=== PATIENT | male | born 1975 | race Caucasian/White ===

== ENCOUNTER → 2018-04-11 12:03 | Outpatient (CLI) | payer OTHER, SELFPAY ==
--- NOTE | 2018-04-11 | DI.RAD.S_ITS ---
PROCEDURE: XR SHOULDER LT MIN 2V INDICATIONS: LEFT SHOULDER PAIN TECHNIQUE: 3 views of the shoulder were acquired. COMPARISON: None. FINDINGS: Bones: No acute fractures or dislocations, but there has been a prior repair of what appears to be an anterior glenoid fracture, with both screws and efe in place. Moderate degenerative osteoarthritis is likely posttraumatic in this clinical circumstance at the glenohumeral joint.. No suspicious bony lesions. Visualized ribs appear intact. Soft tissues: No suspicious soft tissue calcifications. 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 No definite acute disease. Dictated by: Jameson Peng M.D. on 04/11/2018 at 13:50 Approved by: Jameson Peng M.D. on 04/11/2018 at 13:51
== END ==
PROVIDERS: Visit Provider Family Medicine
DX: M25.512 Pain in left shoulder (principal); M19.112 Post-traumatic osteoarthritis, left shoulder; T14.90XS Injury, unspecified, sequela
CPT/HCPCS: 73030

== ENCOUNTER → 2021-01-12 10:36 | Outpatient (CLI) | payer OTHER, SELFPAY ==
--- NOTE | 2021-01-12 | DI.RAD.S_ITS ---
PROCEDURE: XR LUMBAR SPINE 2-3V INDICATIONS: low back pain TECHNIQUE: 3 views of the lumbar spine were acquired. COMPARISON: None. FINDINGS: Bones: No acute fracture. Multilevel degenerative endplate sclerosis and spurring. Diffuse facet arthropathy. Straightening of the normal lordotic curvature. No definite lumbar disc space narrowing. Soft tissues: Overlying bowel gas pattern is normal. No suspicious soft tissue calcifications. IMPRESSION: Straightening of the normal lordotic curvature. Scattered endplate degenerative changes and mild facet disease. Dictated by: Keyur Bowie M.D. on 01/12/2021 at 13:27 Approved by: Keyur Bowie M.D. on 01/12/2021 at 13:28
== END ==
PROVIDERS: PCP Internal Medicine; Referring Provider Internal Medicine; Visit Provider Internal Medicine
DX: M54.50 Low back pain, unspecified (principal); M47.816 Spondylosis without myelopathy or radiculopathy, lumbar region
CPT/HCPCS: 72100

== ENCOUNTER 2021-03-06 04:10 | Emergency (ER) | payer OTHER, SELFPAY ==
[2021-03-06 04:16] VITALS: BP 141/68; PULSE 50; RESP 18; TEMP 36.6; O2SAT 99; BMI 24.3
--- NOTE | 2021-03-06 04:23 | DI.US.S_ITS ---
PROCEDURE: US SCROTUM INDICATIONS: PAIN TECHNIQUE: Real-time scanning was performed of the scrotum and testicles, with image documentation. Color and pulse Doppler interrogation was performed of both testicles. COMPARISON: [facility], CT, CT ABDOMEN PELVIS W CON, 03/06/2021, 4:58. FINDINGS: Right: Testicle is normal in size at 4.7 x 2 x 3.1 cm, and homogenous in echotexture. Epididymis is normal in overall size and morphology. There is a trace right-sided hydrocele. Overlying scrotal skin is normal in thickness. Left: Testicle is normal in size at 5.2 x 2.3 x 3.1 cm, and homogeneous in echotexture. Epididymis is normal in overall size and morphology. There is a trace left-sided hydrocele. Overlying scrotal skin is normal in thickness. Doppler: Color and pulse Doppler demonstrate normal and symmetric arterial flow in both testicles. No varicocele is seen. IMPRESSION: Study within normal limits, with trace hydroceles seen. Note: No significant discrepancy from the preliminary report. Dictated by: Natalio Luke M.D. on 03/06/2021 at 6:58 Approved by: Natalio Luke M.D. on 03/06/2021 at 7:00
--- NOTE | 2021-03-06 04:23 | DI.CT.S_ITS ---
PROCEDURE: CT ABDOMEN PELVIS W CON INDICATIONS: abd/back/testicular pain, hx testicular torsion? TECHNIQUE: After the administration of IV contrast, axial sections were acquired from the lung bases to the pubic symphysis. Coronal and sagittal reformats were performed. For radiation dose reduction, the following was used: automated exposure control, adjustment of mA and/or kV according to patient size. COMPARISON: [facility], US, US SCROTUM, 03/06/2021, 4:53. FINDINGS: Image quality: Excellent. Lung bases: Unremarkable. A small hiatal hernia is incidentally noted. Heart: No significant findings. ABDOMEN: Liver: Liver demonstrates normal size. Numerous rounded low-density lesions are seen, which are attributed to simple cysts. Gallbladder: Unremarkable. Biliary ducts: Unremarkable. Pancreas: Unremarkable. Spleen: The spleen demonstrates normal size. Along the anterior aspect of the spleen, there is a low-density lesion that measures 1 cm. Adrenal Glands: Unremarkable. Kidneys and Ureters: There is an obstructing stone seen at the left ureteropelvic junction, as on series 4, image 34 and on series 2, image 40 that measures up to 5 mm. There is associated left-sided hydronephrosis. Minimal perinephric fat stranding is seen. The left kidney demonstrates delayed enhancement compared to the right. The kidneys demonstrate normal size. No right-sided hydronephrosis is seen. Stomach and Bowel: Stomach, small bowel loops, and colon are unremarkable. A normal appendix is incidentally noted. There is minimal sigmoid diverticulosis, without findings of active diverticulitis. Peritoneum: No abnormal intraperitoneal fluid. No free air. Ventral Wall: A mild periumbilical hernia is seen, containing fat. Abdominal Nodes: No retroperitoneal or mesenteric adenopathy by size criteria. Vessels: Aorta and inferior vena cava are normal in size. PELVIS: Pelvic Organs: Unremarkable. Bladder: Unremarkable. Pelvic Nodes: No enlarged lymph nodes. Miscellaneous: No inguinal hernias are seen. Bones: Unremarkable. IMPRESSION: 5 mm obstructing left-sided kidney stone. Incidental note is made of: Small hiatal hernia Simple appearing liver cysts Fat containing periumbilical hernia Normal appendix Diverticulosis, without active diverticulitis Note: No significant discrepancy from the preliminary report. Dictated by: Natalio Luke M.D. on 03/06/2021 at 7:00 Approved by: Natalio Luke M.D. on 03/06/2021 at 7:05
--- NOTE | 2021-03-06 04:24 | ED_ITS ---
HPI - Male Genitourinary General Chief complaint: Abdominal Pain Stated complaint: severe abdominal/pelvic pain Time Seen by Provider: 03/06/21 04:16 Source: patient Mode of arrival: Ambulatory Limitations: no limitations History of Present Illness HPI Narrative: This is a 46-year-old male who comes in with acute onset of lower abdominal, back and testicular pain while sleeping. Patient states that he has pain he can not really describe if it is in the left or right testicle. He is not tender with palpation but does describe testicular pain radiate up to his back and abdomen. Patient denies fevers or chills. He has had nausea and had some active vomiting in the department. He states he has had normal bowel movements with no diarrhea constipation. He states he has been urinating normally with no discharge or difficulty with urination. Patient states he had a two similar episodes in 2016 or 2017. Patient states he was seen by Dr. Davalos in [place], [place]. He was told they need to take him to the OR but when by seen by the urologist other partner they did not think he required surgical treatment. 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 Patient states he has had sick shoulder surgeries most recently a months ago to clean out his shoulder. He denies other medical issues currently besides taking meloxicam for chronic back pain. He denies any drug allergies. He states he does smoke, occasional alcohol, marijuana but no o ther illicit. Dr. Silverio is his primary care. Related Data Previous Rx's Medication Instructions Recorded ketorolac 10 mg tablet 10 mg PO Q6H PRN #14 tab 03/06/21 ondansetron 4 mg disintegrating 4 mg PO Q6H PRN #10 tab 03/06/21 tablet tamsulosin 0.4 mg capsule (Flomax) 0.4 mg PO DAILY #7 cap 03/06/21 Allergies Allergy/AdvReac Type Severity Reaction Status Date / Time No Known Drug Allergies Allergy Verified 03/06/21 04:18 Review of Systems Review of Systems ROS Unobtainable: All systems reviewed & are unremarkable except as noted in HPI and below Patient History Social History Smoking Status: Never smoker Smoking Status: Never smoker Substance Use Type: marijuana Exam Narrative Exam Narrative: GENERAL: Alert and oriented x three, male in moderate distress. HEENT: Head normocephalic, atraumatic, EOMI, pupils reactive, face symmetric, moist mucous membranes NECK: Supple, full range of motion CARDIOVASCULAR: Regular rate and rhythm without murmurs, rubs or gallops. RESPIRATORY: Breath sounds equal bilaterally, no wheezes rales or rhonchi. ABDOMEN: Soft, generalized abdominal. Hyperactive bowel sounds all 4 quadrants. No guarding or rebound, rigidity, no mass, nondistended. : Bilateral CVA tenderness. Male: normal external examination, no swelling, warmth erythema appreciated, penile discharge or lesions, testicles non-tender to palpation, cremasteric reflex intact bilaterally, no horizontal lie noted, no inguinal hernias noted. EXTREMITIES: Normal range of motion, no clubbing or edema. Neurovascularly intact NEUROLOGICAL: Cranial nerves II through XII grossly intact. Moving all extremit ies SKIN: Warm, dry, no petechiae, no rashes or lesions. Initial Vital Signs Initial Vital Signs: Vital Signs Temperature 98 F 03/06/21 04:16 Pulse Rate 50 L 03/06/21 04:16 Respiratory Rate 18 03/06/21 04:16 Blood Pressure 141/68 H 03/06/21 04:16 Pulse Oximetry 99 03/06/21 04:16 Course Orders Ordered: ED Orders 03/06/21 04:18 CMP [Comprehensive Metabolic Panel] Stat Complete Blood Count AUTO DIFF Stat Lipase Stat 03/06/21 04:23 CT abdomen pelvis w con Stat US scrotum Stat 03/06/21 06:00 Urinalysis and Microscopic Stat Discontinued Medications Sodium Chloride (Normal Saline 0.9%) 1,000 mls @ 1,000 mls/hr IV BOLUS ONE Stop: 03/06/21 05:21 Last Infusion: 03/06/21 06:12 Dose: 0 mls/hr Documented by: Admin: 03/06/21 04:27 Dose: 1,000 mls/hr Documented by: JOSE G Ketorolac Tromethamine (Ketorolac 30 Mg/Ml Vial) 15 mg IV NOW ONE Stop: 03/06/21 04:23 Last Admin: 03/06/21 04:28 Dose: 15 mg Documented by: JOSE G Ketorolac Tromethamine (Ketorolac 10 Mg Tablet) 10 mg PO NOW ONE Stop: 03/06/21 06:52 Last Admin: 03/06/21 06:55 Dose: 10 mg Documented by: Ondansetron HCl (Ondansetron 4 Mg/2 Ml Inj) 4 mg IV NOW ONE Stop: 03/06/21 04:23 Last Admin: 03/06/21 04:28 Dose: 4 mg Documented by: JOSE G Tamsulosin HCl (Tamsulosin 0.4 Mg Capsule) 0.4 mg PO NOW ONE Stop: 03/06/21 06:33 Last Admin: 03/06/21 06:45 Dose: 0.4 mg Documented by: Reevaluation(s) Reevaluation #1: Patient feeling significantly better shortly after Toradol. Urine does show hematuria. Reevaluation #2: Patient continues to be more comfortable. He has some pain but is manageable. We reviewed patient's imaging including that he has a kidney stone high above left. Patient was given Flomax. Pain has been controlled with Toradol. He has hydrocodone at home but states it makes him feel hung over and somewhat nauseous was given a prescription for Zofran. He has been taking meloxicam but is unsure of the dose asked stop his meloxicam for short period to take Toradol in stead orally. Patient has never seen a urologist. He does have follow-up with primary care but was given referral to Urology as well along with return precautions. Vital Signs Vital signs: Vital Signs - 8 hr 03/06/21 04:16 03/06/21 07:00 Temperature 98 F Pulse Rate 50 L 66 Respiratory Rate 18 16 Blood Pressure 141/68 H 127/58 L Pulse Oximetry 99 99 MDM - Male Genitourinary Lab Data Result diagrams: 03/06/21 04:18 03/06/21 04:18 Labs: Lab Results 03/06/21 03/06/21 03/06/21 Range/Units 04:18 04:18 06:00 WBC 5.8 (4.5-11.0) X10^3/uL RBC 4.87 (4.5-5.9) X10^6/uL Hgb 15.1 (13.5-17.5) g/dL Hct 44.3 (41-53) % MCV 91.0 (80-100) fL MCH 30.9 (26-34) PG MCHC 34.0 (30-36) % RDW 12.4 (11.6-14.8) % Plt Count 193 (150-400) X10^3/uL Neut % (Auto) 41.4 L (50-75) % Lymph % (Auto) 45.3 H (25-40) % Spencer % (Auto) 9.2 (3-14) % Eos % (Auto) 3.0 (2-4) % Baso % (Auto) 1.1 (0-2) % Neut # (Auto) 2400 (5983-7379) /uL Lymph # (Auto) 2600 (8152-8050) /uL Spencer # (Auto) 500 (0-900) /uL Eos # (Auto) 200 (0-450) /uL Baso # (Auto) 100 (0-100) /uL Sodium 137 (137-145) mmol/L Potassium 3.9 (3.4-5.1) mmol/L Chloride 109 H (98-107) mmol/L Carbon Dioxide 26 (22-32) mmol/L BUN 14 (9-20) mg/dL Creatinine 0.85 (0.66-1.25) mg/dL Estimated GFR > 60.0 (>60) mL/min BUN/Creatinine Ratio 16.5 (6-22) Glucose 140 H (70-100) mg/dL Calcium 8.9 (8.4-10.2) mg/dL Total Bilirubin 0.8 (0.2-1.3) mg/dL AST 29 (17-59) IU/L ALT 24 (<50) IU/L Alkaline Phosphatase 38 (38-126) U/L Total Protein 6.7 (6.3-8.2) g/dL Albumin 4.2 (3.5-5.0) g/dL Globulin 2.5 (1.7-4.1) g/dL Albumin/Globulin Ratio 1.7 (1.0-2.8) Lipase 192 (23-300) U/L Urine Color Yellow Urine Appearance Clear Urine pH 7.0 (4.5-8.0) Ur Specific [place] 1.010 (1.000-1.035) Urine Protein Negative (Negative) Urine Glucose (UA) Negative (Negative) g/dL Urine Ketones Negative (NEGATIVE) Urine Occult Blood 3+ H (Negative) Urine Nitrate Negative (Negative) Urine Bilirubin Negative (NEGATIVE) Urine Urobilinogen 0.2 (0.2) E.U./dL Ur Leukocyte Esterase Negative (NEGATIVE) Urine RBC 30-100/hpf H (0-5/HPF) Urine WBC 0-1/hpf (0-5/HPF) Urine Bacteria None seen (None) Urine Mucus 1+ H (Negative) Ur Culture Indicated? Cult not indicated Urine Dip Bedside Urine Glucose Negative Bedside Urine Bilirubin - Negative Bedside Urine Ketone - Negative Urine Specific [place] 1.015 Bedside Urine Occult Blood +++ Bedside Urine pH 6.5 Bedside Urine Protein - Negative Bedside Urine Urobilinogen - Negative Bedside Urine Nitrite - Negative Bedside Urine Leukocytes - Negative Esterase Imaging Data scrotal US: Radiologist's Impression: small hydrocele. No other significant changes. Normal flow bilaterally. CT scan - abdomen/pelvis: Radiologist's Impression: Moderate left hydro secondary to ureteropelvic junction stone. It is 3 x 3.5 x 4 mm. Patient is noted to have sub cm well-circumscribed hypodense liver lesions throughout both lobes. Larger lesion is left lobe 2 cm diameter and appearance of cyst. MDM Narrative Medical decision making narrative: This is a 46-year-old male comes to the emergency department with complaint of sudden onset while sleeping of abdominal, pelvic and testicular pain although patient is not able to localize his pain to either testicle or even both is nontender on exam. He has what is described as a prior history of torsion but was told he did not require surgery. Patient's labs are overall reassuring he does have some hematuria on urinalysis and his ultrasound is negative for torsion and with a reassuring physical exam his CT abdomen pelvis obtained shows moderate left hydro with a stone at the ureteropelvic junction measuring 3 x 3.5 x 4 mm. Findings were shared with the patient he does not have any signs of infection or acute kidney injury at this time. Initially discussed continue patient's home meloxicam, Tylenol oxycodone but patient states he does not tolerate oxycodone well but does have hydrocodone at home. Discussed that he can optimize his medications by stopping meloxicam and having a short course of Toradol or ketorolac orally. Tylenol or hydrocodone/APAP and Flomax. All questions answered. Return precautions discussed. Discharge Plan Departure Patient Disposition: Home Clinical Impression: Kidney stone on left side Instructions: DI for Kidney Stones Activity Restrictions/Additional Instructions: Follow up with your physician or urology. Call for an appointment. You have a kidney stone on your left side in the ureter close to the kidney. Take flomax daily until gone. Stop your meloxicam. You may take Toradol or ketorolac 1 tablet every 6 hours as needed for pain. Do not take for more than 5 days in a row. You may take your next dose at 10:30am. You may take Tylenol up to a 1000 mg every 8 hours with this medication or your hydrocodone/APAP every 6 hours. Do not take more than 3000 mg of Tylenol in 24 hours. If you are nauseated you may take Zofran 1 tablet every 6 hours as needed. You can take this 20 minutes prior to narcotic pain medication if it makes you feel nauseated. [facility] [place]. Please return for fevers, rapidly worsening abdominal, back or flank pain, persistent vomiting, inability to urinate or other new or concerning symptoms. Prescriptions: New ondansetron 4 mg tablet,disintegrating 4 mg PO Q6H PRN (Reason: nausea and vomiting) Qty: 10 0RF ketorolac 10 mg tablet 10 mg PO Q6H PRN (Reason: pain) Qty: 14 0RF tamsulosin [Flomax] 0.4 mg capsule 0.4 mg PO DAILY Qty: 7 0RF Referrals: Zulma Guido MD [Physician] - Christie Silverio ARNP [Primary Care Provider] -
[2021-03-06] MEDS: SODIUM CHLORIDE 0.9% 1,000 ML 1000 ML IV (04:27)
[2021-03-06] MEDS: ONDANSETRON 4 MG/2 ML INJ IV (04:28)
[2021-03-06] MEDS: KETOROLAC 30 MG/ML VIAL 15 MG IV (04:28)
[2021-03-06 04:33] LABS: Add Manual Diff / Slide Review NO; Basophils Absolute Auto 100 /uL (0-100); Basophils Percent Auto 1.1 % (0-2); Eosinophils Absolute Auto 200 /uL (0-450); Hematocrit 44.3 % (41-53); Hemoglobin 15.1 g/dL (13.5-17.5); Lymphocytes Absolute Auto 2600 /uL (1100-4500); Lymphocytes Percent Auto 45.3 % (25-40); Mean Corpuscular Hemoglobin 30.9 PG (26-34); Monocytes Absolute Auto 500 /uL (0-900); Monocytes Percent Auto 9.2 % (3-14); Neutrophils Absolute Auto 2400 /uL (1500-7000); Neutrophils Percent Auto 41.4 % (50-75); Platelet Count 193 X10^3/uL (150-400); Red Blood Cell Count 4.87 X10^6/uL (4.5-5.9); Red Cell Distribution Width 12.4 % (11.6-14.8); White Blood Cell Count 5.8 X10^3/uL (4.5-11.0)
[2021-03-06 04:42] LABS: Alanine Aminotransferase 24 IU/L (<50); Albumin 4.2 g/dL (3.5-5.0); Albumin Globulin Ratio 1.7 (1.0-2.8); Alkaline Phosphatase 38 U/L (38-126); Aspartate Aminotransferase 29 IU/L (17-59); BUN Creatinine Ratio 16.5 (6-22); Bilirubin Total 0.8 mg/dL (0.2-1.3); Blood Urea Nitrogen 14 mg/dL (9-20); Calcium 8.9 mg/dL (8.4-10.2); Carbon Dioxide 26 mmol/L (22-32); Chloride 109 mmol/L (98-107); Estimated Glomerular Filt Rate > 60.0 mL/min (>60); Globulin 2.5 g/dL (1.7-4.1); Glucose 140 mg/dL (70-100); HEMOLYSIS 36 (0-50); Lipase 192 U/L (23-300); Potassium 3.9 mmol/L (3.4-5.1); Sodium 137 mmol/L (137-145); Total Protein 6.7 g/dL (6.3-8.2)
[2021-03-06 06:20] LABS: Appearance Urine UA CLEAR; Bilirubin Urine UA NEGATIVE (NEGATIVE); Color Urine UA YELLOW; Glucose Urine UA NEGATIVE (Negative); Ketones Urine UA NEGATIVE (NEGATIVE); Leukocyte Esterase Urine UA NEGATIVE (NEGATIVE); Nitrite Urine UA NEGATIVE (Negative); Occult Blood Urine UA 3+ (Negative); Protein Urine UA NEGATIVE (Negative); Urobilinogen Urine UA 0.2 E.U./dL (0.2)
[2021-03-06 06:30] LABS: RBC Urine 30-100/HPF (0-5/HPF); WBC Urine 0-1/HPF (0-5/HPF)
[2021-03-06 06:31] LABS: Bacteria Urine None Seen; Culture Indicated Urine Cult Not Indicated; Mucus Urine 1+ (Negative)
[2021-03-06] MEDS: TAMSULOSIN 0.4 MG CAPSULE PO (06:45)
[2021-03-06] MEDS: KETOROLAC 10 MG TABLET PO (06:55)
[2021-03-06 07:00] VITALS: BP 127/58; PULSE 66; RESP 16; O2SAT 99
== END 2021-03-06 07:01 | disposition home or self-care (01) ==
PROVIDERS: Emergency Provider Emergency Medicine; PCP Internal Medicine
DX: N13.2 Hydronephrosis with renal and ureteral calculous obstruction (principal); N50.819 Testicular pain, unspecified
CPT/HCPCS: 36415; 74177; 76870; 80053; 81001; 81003; 83690; 85025; 96361; 96374; 96375; 99284; J1885; J2405; Q9967

== ENCOUNTER → 2021-03-21 11:12 | Outpatient (CLI) | payer OTHER, SELFPAY ==
--- NOTE | 2021-03-21 | DI.RAD.S_ITS ---
PROCEDURE: XR KUB INDICATIONS: KIDNEY STONES TECHNIQUE: One view of the abdomen acquired. COMPARISON: [facility], CT, CT ABDOMEN PELVIS W CON, 03/06/2021, 4:58. FINDINGS: Surgical changes and devices: None. Bowel: Bowel gas pattern is normal. Soft tissues: There is a proximal left ureteral stone, unchanged in position. Visualized solid organ contours appear normal in size. Bones: No suspicious bony lesions. IMPRESSION: Persistent left proximal ureteral stone. Dictated by: Julio Davies M.D. on 03/21/2021 at 19:35 Approved by: Julio Davies M.D. on 03/21/2021 at 19:36
== END ==
PROVIDERS: PCP Family Medicine; Referring Provider Family Medicine; Visit Provider Family Medicine
DX: N20.1 Calculus of ureter (principal)
CPT/HCPCS: 74018

== ENCOUNTER → 2021-03-29 09:55 | Outpatient (CLI) | payer OTHER, SELFPAY ==
[2021-03-29 10:40] LABS: COVID19 -Nasal RAPID Negative (Negative)
== END ==
PROVIDERS: PCP Family Medicine; Referring Provider Specialist; Visit Provider Specialist
DX: Z20.822 Contact with and (suspected) exposure to COVID-19 (principal)
CPT/HCPCS: 87635; C9803

== ENCOUNTER 2021-04-01 07:36 | Day surgery (SDC) | payer OTHER, SELFPAY ==
[2021-03-29 07:46] VITALS: BMI 25.9
[2021-04-01] VITALS (8 sets, daily range): BP systolic 103–140; BP diastolic 67–79; PULSE 56–67; RESP 10–18; TEMP 36.1–36.7; O2SAT 95–100; BMI 25.9
--- NOTE | 2021-04-01 | DI.RAD.S_ITS ---
PROCEDURE: XR KUB INDICATIONS: Left UPJ calculus TECHNIQUE: One view of the abdomen acquired. COMPARISON: [facility], CR, XR KUB, 03/21/2021, 11:12. FINDINGS: Surgical changes and devices: None. Bowel: Bowel gas pattern is normal. Soft tissues: 4 x 2 mm calcification is seen projecting in the region of left UPJ not significantly changed in size and appearance from previous study. No new renal calcification is seen. Visualized solid organ contours appear normal in size. Bones: No suspicious bony lesions. IMPRESSION: Persistent calcification projecting in the region of left UPJ not significantly changed from prior study. Dictated by: Nii Navarro M.D. on 04/01/2021 at 8:11 Approved by: Nii Navarro M.D. on 04/01/2021 at 8:17
[2021-04-01] MEDS: LACTATED RINGERS 1,000 ML 42 ML IV (08:09)
--- NOTE | 2021-04-01 08:55 | PM.PREOP ---
Pre-operative Note COVID-19 Criteria for continued procedure: Expected advancement of disease process, Possibility delay results in more complex future surgery or treatment, Increased loss of function, Continuing or worsening of significant or severe pain, Deterioration of the patient's condition or overall health, Delay expected to result in less-positive ultimate med/surg outcome and Non-surgical alternatives not available or appropriate per current SOC Interval Note History & Physical reviewed/Exam performed by Physician: Yes Changes to H&P: No
[2021-04-01] MEDS: CEFAZOLIN 2 GM/20 ML SYRINGE IV (09:30)
--- NOTE | 2021-04-01 09:36 | SUR.OPER ---
Supine on ESWL table, head on pillow, arms padded with gel pads and at sides, rolled towel under wrists,, legs uncrossed, gel pad under bilateral heels.
--- NOTE | 2021-04-01 09:52 | P.OP_ITS ---
Operative Date/Time/Diagnoses Date of procedure: 04/01/21 Time of procedure: 09:53 Pre-op diagnosis: Obstructing 7 mm left ureteropelvic junction calculus Intractable left renal colic Procedure & Clinicians Procedure: 1. Left extracorporeal shockwave lithotripsy (maximal power level 7 x1 1000 shocks). Same procedure as scheduled: Yes Indications: 1. Obstructing 7 mm left ureteropelvic junction calculus. 2. Intractable left renal colic. Surgeon: Zulma Guido Click Yes if Unassisted: Yes Anesthesia Type: General Operative Notes Findings: Index calculus unchanged in size or position on today's imaging in comparison to recent studies. Closure Type: not applicable Specimen(s): none sent Estimated Blood Loss (mL): 0 Blood products transfused: none Procedure in detail: Patient was positioned supine was administered general anesthesia. The index calculus was localized X, Y and Z planes. Lithotripsy was then commenced at minimal power level for 200 shocks. A 2 minute pause was then conducted. Lithotripsy was then commenced and the power level was gradually increased to maximum 7.0. At 500 shocks there was excellent assistance stone fragmentation. Additional 500 shocks was then provided at this time no remaining visible stone material could be visualized. The treatment year then halted. The patient was then awakened, transferred to [facility], and transferred to recovery awake and stable condition. Complications: none Post-operative Condition: stable Disposition: PACU Plan for aftercare: Discharge home.
[2021-04-01] MEDS: FUROSEMIDE 40 MG/4 ML VIAL 20 MG IV (10:12)
[2021-04-01] MEDS: HYDROCODONE/ACET 5/325 TABLET 1 TAB PO (10:42)
--- NOTE | 2021-04-01 11:53 | SUR.PHASEII ---
1100-Pt A&O, VSS, up to bathroom and voiding without difficulty, urine strained and no stones noted. Pt denies nausea and drinking juice without problems, having a bit of pain 4/10 now getting better with prior medication given. iv dcd and site clear. 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
== END 2021-04-01 11:00 | disposition home or self-care (01) ==
PROVIDERS: PCP Family Medicine; Referring Provider Specialist; Visit Provider Specialist
PROC: (CPT 50590; principal; 2021-04-01 09:00)
DX: N20.1 Calculus of ureter (principal)
CPT/HCPCS: 50590; 74018; J0690; J1940; J2250; J2405; J2704; J3010

== ENCOUNTER → 2021-04-11 07:36 | Outpatient (CLI) | payer OTHER, SELFPAY ==
--- NOTE | 2021-04-11 07:58 | DI.RAD.S_ITS ---
PROCEDURE: XR KUB INDICATIONS: kidney stones TECHNIQUE: One view of the abdomen acquired. COMPARISON: [facility], CR, XR KUB, 04/01/2021, 7:51. FINDINGS: Surgical changes and devices: None. Bowel: Bowel gas pattern is nonobstructive. Prominent colonic stool is present. Soft tissues: No suspicious abdominal calcifications. Visualized solid organ contours appear normal in size. Bones: No suspicious bony lesions. IMPRESSION: Constipation without obstruction. Dictated by: Neisha Oviedo M.D. on 04/11/2021 at 15:41 Approved by: Neisha Oviedo M.D. on 04/11/2021 at 15:56
[2021-04-11 08:58] LABS: Calcium 9.5 mg/dL (8.4-10.2); Uric Acid 4.7 mg/dL (3.5-8.5)
[2021-04-12 06:31] LABS: Parathyroid Hormone Int 26 pg/mL (15-65)
== END ==
PROVIDERS: PCP Family Medicine; Referring Provider Specialist; Visit Provider Specialist
DX: N20.1 Calculus of ureter (principal)
CPT/HCPCS: 36415; 74018; 82310; 83970; 84550

== ENCOUNTER → 2021-07-02 13:16 | Outpatient (CLI) | payer OTHER, SELFPAY ==
--- NOTE | 2021-07-02 13:18 | DI.MRI.S_ITS ---
PROCEDURE: MR LUMBAR SPINE WO CON INDICATIONS: Chronic progressive low back pain TECHNIQUE: Noncontrast sagittal T1 spin echo and T2 fast echo, sagittal STIR, and T2 fast spin echo through the lumbar spine. In cases with scoliosis, additional coronal T2 fast spin echo may be performed. COMPARISON: [facility], CR, XR KULynne, 04/11/2021, 7:56. FINDINGS: Image quality: Excellent. Alignment and Curvature: There are 5 lumbar type vertebral bodies by plain film. There is loss of normal lumbar lordosis. Mild, roughly 2 mm of retrolisthesis of L2 on L3, L3 on L4, and L4 on L5. Bone Marrow: Marrow is of normal overall signal. No acute vertebral body compression fractures. Mild reactive signal within the endplates adjacent to the L1-L2, L2-L3, L3-L4, and L4-L5 intervertebral discs. Spinal Cord: Conus medullaris terminates at the lower L1 level. Visualized cord demonstrates normal signal and size. Paraspinous Soft Tissues: No paravertebral masses. T12-L1: Normal appearance. L1-L2: Mild disc desiccation and diffuse disc bulge. Mild canal stenosis. No foraminal stenosis. L2-L3: Mild disc desiccation and diffuse disc bulge. No significant canal, or foraminal stenosis. L3-L4: Mild disc desiccation and diffuse disc bulge with small superimposed central protrusion. Mild epidural lipomatosis. Mild canal stenosis. Mild bilateral foraminal stenosis. L4-L5: Mild disc desiccation and diffuse disc bulge. Mild canal stenosis. Mild bilateral foraminal stenosis. L5-S1: Mild disc desiccation and diffuse disc bulge. Mild bilateral facet hypertrophy. No significant canal, or foraminal stenosis. IMPRESSION: 1. Multilevel degenerative disc and facet disease, as well as ligamentum flavum hypertrophy and epidural lipomatosis. 2. Mild multilevel canal and foraminal stenoses. No neural impingement. Dictated by: Cammie Benz M.D. on 07/04/2021 at 8:59 Approved by: Cammie Benz M.D. on 07/04/2021 at 9:02
== END ==
PROVIDERS: PCP Family Medicine; Referring Provider Physical Medicine & Rehabilitation; Visit Provider Physical Medicine & Rehabilitation
DX: M47.26 Other spondylosis with radiculopathy, lumbar region (principal); M48.061 Spinal stenosis, lumbar region without neurogenic claudication; M47.27 Other spondylosis with radiculopathy, lumbosacral region
CPT/HCPCS: 72148

== ENCOUNTER → 2021-12-01 11:29 | Outpatient (CLI) | payer OTHER, SELFPAY ==
--- NOTE | 2021-12-01 13:58 | DIET.OUTPTC ---
Dietary Outpatient Consultation Note Consultation Date: 12/01/2021 46[address] M attending RD visit for help with MNT for kidney stones referred by urologist Marcin. Pt with kidney stones in late 20s then again early this year. Pt has had repeat litholink tests with elevated urine pH and urine oxalate mildly elevated. Since litholink tests pt has made a variety of changes to lifestyle including cutting back on oxalate containing foods such as nuts and potatoes, has stopped calcium supplement. Pt has hx being vegetarian for 10y, he recently added meat back into diet, however, only chicken. Pt does not consume dairy products as he is lactose intolerant, instead uses almond milk. Usual Day: 1-2c coffee or mudwater product B: raisin bran c almond milk L: two snacks rather than lunch- pt has almond butter bar or fruit D: chicken and veggies Pt consumes no etoh and adequate hydration per litholink results and pt report- protective factor. Interventions: 1. using [facility] MNT handout, educated pt on reducing urine oxalate in three ways: -avoid high oxalate foods- spinach, rhubarb, potato chips and fries, nuts and nut butters -consume 300mg calcium with any oxalate containing foods to bind oxalate in gut (provided calcium content of vegetarian foods handout) -avoid Vitamin C supplements (pt taking these last winter due to covid concerns) instead eat high vitamin c natural foods for immune support. 2. To support high urine pH increase intake F/V and decrease meat consumption. Because pt has minimal meat intake, focus on increasing F/V during lunch time snacks. Collaborated c pt on ways to achieve this. F/u prn, pt has appt with hospice clinical manager for further support and possible medication to support high urine pH Electronically Signed by: Mely Westbrook 12/01/21 13:58 Clinical Dietitian [place] [address] [place] [address]
== END ==
PROVIDERS: PCP Family Medicine; Referring Provider Specialist; Visit Provider Specialist
DX: Z87.442 Personal history of urinary calculi (principal); Z71.3 Dietary counseling and surveillance
CPT/HCPCS: 97802

== ENCOUNTER → 2022-01-07 13:54 | Outpatient (CLI) | payer OTHER, SELFPAY ==
--- NOTE | 2022-01-07 13:58 | DI.MRI.S_ITS ---
PROCEDURE: MR ANKLE RT WO CON INDICATIONS: bi lateral ankle pain TECHNIQUE: Noncontrast sagittal T1 spin echo and T2 fast spin echo with fat saturation, axial proton density fast spin echo and T2 fast spin echo with fat saturation, coronal T1 spin echo and T2 fast spin echo with fat saturation through the ankle/hindfoot. COMPARISON: None. FINDINGS: Image quality: Diagnostic. Susceptibility artifacts in posterior medial ankle joint is seen partially limits evaluation of medial ankle. Bones and joints: No definite bone marrow contusions or fractures. No hindfoot coalitions. Mild midfoot and hindfoot joint osteoarthritis. No definite osteochondral injuries of the talar dome. No pathologic joint effusions. Medial structures: The posterior tibialis, flexor digitorum longus, and flexor hallucis longus tendons are grossly intact. The posterior tibial neurovascular bundle appears normal within the tarsal tunnel, without extrinsic mass effect. The deltoid ligament and spring ligament complex appears slightly thickened, which may indicate low-grade sprain versus artifact. Lateral structures: The anterior talofibular, calcaneofibular, and posterior talofibular ligaments appear mildly attenuated with intrasubstance T2 hyperintense signal.. More superiorly, the anterior and posterior tibiofibular ligaments appear intact, as is the intermalleolar ligament. The tibiofibular syndesmosis is normal in width at 2 mm or less. The peroneus longus and brevis tendons demonstrate normal location and morphology. Adjacent bony peroneal tubercle and retrotrochlear prominence are normal in size. The sinus tarsi demonstrates normal fatty signal, without edema, fibrosis, or cyst formation. Visualized sinus tarsi components (cervical ligament, interosseous talocalcaneal ligament, roots of the inferior extensor retinaculum) appear normal. The calcaneonavicular and calcaneocuboid components of the bifurcate ligament appear intact. The dorsal calcaneocuboid ligament appears intact. Anterior structures: The tibialis anterior, extensor hallucis longus, and extensor digitorum longus tendons appear intact. The dorsal talonavicular ligament appears intact. Posterior and plantar structures: Achilles tendon is intact. Medial and lateral bands of the plantar fascia are of normal thickness. No abductor digiti quinti muscle atrophy to suggest Baker neuropathy. IMPRESSION: 1. Slightly limited evaluation of medial ankle due to metallic susceptibility artifacts in this area. 2. No gross marrow edema. No acute fracture or dislocation. No definite osteochondral injuries of talar dome. 3. Suggestion of low-grade sprain versus artifacts involving medial ankle ligaments. Low-grade sprain/partial-thickness tear involving anterior and posterior talofibular ligaments and calcaneofibular ligament. 4. No definite tendon signal abnormalities. Dictated by: Nii Navarro M.D. on 01/09/2022 at 8:44 Approved by: Nii Navarro M.D. on 01/09/2022 at 9:02
--- NOTE | 2022-01-07 13:58 | DI.MRI.S_ITS ---
PROCEDURE: MR ANKLE LT WO CON INDICATIONS: bi lateral ankle pain TECHNIQUE: Noncontrast sagittal T1 spin echo and T2 fast spin echo with fat saturation, axial proton density fast spin echo and T2 fast spin echo with fat saturation, coronal T1 spin echo and T2 fast spin echo with fat saturation through the ankle/hindfoot. COMPARISON: [facility], MR, MR ANKLE RT WO CON, 01/07/2022, 14:14. FINDINGS: Image quality: Excellent. Bones and joints: No fracture or dislocation. Presence of os navicularis with pseudoarthrosis between medial navicular bone and ossicle and mild edema in this area. Well-defined plantar calcaneal enthesophyte is also noted with edema involving plantar aspect of calcaneus near plantar fascia insertion. No hindfoot coalitions. There is suggestion of a small osteochondral injury involving posterior distal tibial plafond and measures 3 mm in size. No osteochondral injuries of the talar dome. Small joint effusion is seen, no gross loose bodies. Medial structures: The posterior tibialis, flexor digitorum longus, and flexor hallucis longus tendons are intact. Small amount of fluid distending flexor tendon sheath is seen. The posterior tibial neurovascular bundle appears normal within the tarsal tunnel, without extrinsic mass effect. The deltoid ligament and spring ligament complex is thickened. Lateral structures: The anterior talofibular, calcaneofibular, and posterior talofibular ligaments appear intact. More superiorly, the anterior and posterior tibiofibular ligaments appear intact, as is the intermalleolar ligament. The tibiofibular syndesmosis is normal in width at 2 mm or less. The peroneus longus and brevis tendons demonstrate normal location and morphology. Adjacent bony peroneal tubercle and retrotrochlear prominence are normal in size. The sinus tarsi demonstrates normal fatty signal, without edema, fibrosis, or cyst formation. Visualized sinus tarsi components (cervical ligament, interosseous talocalcaneal ligament, roots of the inferior extensor retinaculum) appear normal. The calcaneonavicular and calcaneocuboid components of the bifurcate ligament appear intact. The dorsal calcaneocuboid ligament appears intact. Anterior structures: The tibialis anterior, extensor hallucis longus, and extensor digitorum longus tendons appear intact. The dorsal talonavicular ligament appears intact. Posterior and plantar structures: Achilles tendon is mildly thickened. Thickened plantar fascia at its calcaneal insertion is seen with mild edema. No abductor digiti quinti muscle atrophy to suggest Baker neuropathy. IMPRESSION: 1. Tiny osteochondral injury involving posterior distal tibial plafond. Pseudoarthrosis involving medial portion of navicular bone and adjacent os navicularis with mild edema. No fracture or dislocation. No osteochondral injuries of talar dome. Small joint effusion, no loose bodies. 2. Low-grade tenosynovitis involving flexor tendons. No full-thickness tendon rupture. 3. Low-grade medial ankle ligament sprain. Lateral ankle ligaments are intact. 4. Small plantar calcaneal enthesophyte with edema and adjacent thickening of the plantar fascia suggestive of low-grade plantar fasciitis. 5. Mild distal Achilles tendinosis at its posterior calcaneal insertion. No Achilles tendon rupture. Dictated by: Nii Navarro M.D. on 01/09/2022 at 9:02 Approved by: Nii Navarro M.D. on 01/09/2022 at 9:20
== END ==
PROVIDERS: PCP Family Medicine; Referring Provider Podiatrist; Visit Provider Podiatrist
DX: S93.411A Sprain of calcaneofibular ligament of right ankle, initial encounter (principal); S93.491A Sprain of other ligament of right ankle, initial encounter; S93.492A Sprain of other ligament of left ankle, initial encounter; M72.2 Plantar fascial fibromatosis; M65.872 Other synovitis and tenosynovitis, left ankle and foot; M19.071 Primary osteoarthritis, right ankle and foot; M77.32 Calcaneal spur, left foot; M79.671 Pain in right foot; M79.672 Pain in left foot
CPT/HCPCS: 73721

== ENCOUNTER → 2022-09-27 16:36 | Outpatient (CLI) | payer OTHER, SELFPAY ==
--- NOTE | 2022-09-27 | DI.RAD.S_ITS ---
PROCEDURE: XR CHEST 2V INDICATIONS: PAIN TECHNIQUE: 2 views of the chest were acquired. COMPARISON: None. FINDINGS: Surgical changes and devices: None. Lungs and pleura: Matted nodularity projecting over the trachea on the lateral view only. Mediastinum: Mediastinal contours are normal. Heart size is normal. Bones and chest wall: No suspicious bony abnormalities. Soft tissues appear unremarkable. IMPRESSION: Rounded nodularity projecting over the trachea on the lateral view only. This probably represents superimposed shadows, less likely mass. Recommend confirmation with CT. Dictated by: Chandana Neal M.D. on 09/28/2022 at 8:48 Approved by: Chandana Neal M.D. on 09/28/2022 at 8:49
[2022-09-27 17:19] LABS: Add Manual Diff / Slide Review NO; Basophils Absolute Auto 0 /uL (0-100); Basophils Percent Auto 0.7 % (0-2); Eosinophils Absolute Auto 100 /uL (0-450); Hematocrit 43.2 % (41-53); Hemoglobin 15.2 g/dL (13.5-17.5); Lymphocytes Absolute Auto 1600 /uL (1100-4500); Lymphocytes Percent Auto 31.2 % (25-40); Mean Corpuscular HGB Conc 35.1 % (30-36); Mean Corpuscular Hemoglobin 31.1 PG (26-34); Mean Corpuscular Volume 88.6 fL (80-100); Monocytes Absolute Auto 400 /uL (0-900); Monocytes Percent Auto 8.1 % (3-14); Neutrophils Absolute Auto 2900 /uL (1500-7000); Platelet Count 176 X10^3/uL (150-400); Red Blood Cell Count 4.87 X10^6/uL (4.5-5.9); Red Cell Distribution Width 13.1 % (11.6-14.8); White Blood Cell Count 5.1 X10^3/uL (4.5-11.0)
[2022-09-27 17:31] LABS: D Dimer 359 ng/ml (<500)
[2022-09-27 17:41] LABS: C-Reactive Protein Quant < 0.5 mg/dL (<1.0); Uric Acid 4.9 mg/dL (3.5-8.5)
[2022-09-27 17:42] LABS: Erythrocyte Sedimentation Rate 1 MM/HR (0-15)
[2022-09-27 17:43] LABS: Rheumatoid Factor < 8.6 IU/mL (<12.0)
[2022-09-29 06:33] LABS: Complement Total CH50 57 U/mL (>41)
[2022-09-30 15:58] LABS: ANA Screen, IFA Negative (.)
== END ==
PROVIDERS: PCP Family Medicine; Referring Provider Family Medicine; Visit Provider Family Medicine
DX: R06.09 Other forms of dyspnea (principal); M79.604 Pain in right leg; M79.605 Pain in left leg
CPT/HCPCS: 36415; 71046; 84550; 85025; 85379; 85651; 86038; 86140; 86162; 86430

== ENCOUNTER → 2022-10-06 06:48 | Outpatient (CLI) | payer OTHER, SELFPAY ==
--- NOTE | 2022-10-06 06:49 | DI.CT.S_ITS ---
PROCEDURE: CT CHEST WO CON INDICATIONS: Abnormal Chest xray TECHNIQUE: Noncontrast 5 mm thick sections acquired from the pulmonary apices to the posterior costophrenic angles. 1 mm lung window, 5 mm thick coronal and sagittal and 7 mm axial MIP reformats were then acquired. For radiation dose reduction, the following was used: automated exposure control, adjustment of mA and/or kV according to patient size. COMPARISON: [facility], , XR CHEST 2V, 09/27/2022, 16:50. FINDINGS: Image quality: Excellent. Lungs and pleura: No acute air space opacities. No pleural effusions or pneumothorax. Central and peripheral airways are patent and normal in caliber. Mediastinum: Heart size is normal. No pericardial effusion. No mediastinal adenopathy by size criteria. Thoracic aorta and central pulmonary arteries are normal in size. Esophagus is normal in caliber. No hiatal hernia. Bones and chest wall: No suspicious bony lesions. No vertebral body compression fractures. No axillary or supraclavicular adenopathy by size criteria. Thyroid gland is unremarkable . Abdomen: Visualized upper abdominal solid organs and bowel loops appear normal in the absence of contrast. IMPRESSION: No suspicious pulmonary lesions or acute airspace opacities. Dictated by: Alicia Gunter M.D. on 10/06/2022 at 15:01 Approved by: Alicia Gunter M.D. on 10/06/2022 at 15:19
== END ==
PROVIDERS: PCP Family Medicine; Referring Provider Family Medicine; Visit Provider Family Medicine
DX: R93.89 Abnormal findings on diagnostic imaging of other specified body structures (principal)
CPT/HCPCS: 71250

== ENCOUNTER → 2024-04-16 10:02 | Outpatient (CLI) | payer OTHER, SELFPAY ==
--- NOTE | 2024-04-16 10:03 | DI.RAD.S_ITS ---
PROCEDURE: XR LUMBAR SPINE MIN 4V INDICATIONS: BACK PAIN TECHNIQUE: 5 views of the lumbar spine acquired, including flexion and extension views. COMPARISON: [facility], , XR LUMBAR SPINE 2-3V, 01/12/2021, 10:32. FINDINGS: Bones: 5 nonrib-bearing vertebrae are present. There is normal bony alignment. No vertebral body compression fractures. No suspicious bony lesions. Soft tissues: Overlying bowel gas pattern is normal. No suspicious soft tissue calcifications. Flexion/extension: There is normal range of motion, with preserved normal alignment. IMPRESSION: Unremarkable lumbar spine radiographs Approved by: Jeff Gregory M.D. on 04/16/2024 at 10:56
== END ==
PROVIDERS: PCP Family Medicine; Referring Provider Physical Medicine & Rehabilitation; Visit Provider Physical Medicine & Rehabilitation
DX: M47.26 Other spondylosis with radiculopathy, lumbar region (principal)
CPT/HCPCS: 72110

== ENCOUNTER → 2024-04-24 11:46 | Outpatient (CLI) | payer OTHER, SELFPAY | LOC: PHYS 11:46 | PROVIDERS: Family Provider Family Medicine; PCP Family Medicine; Referring Provider Physical Medicine & Rehabilitation; Visit Provider Physical Medicine & Rehabilitation | DX: M54.16 Radiculopathy, lumbar region (principal) | CPT/HCPCS: 95886; 95911 ==

== ENCOUNTER 2024-06-03 13:17 | Outpatient (CLI) | payer OTHER, SELFPAY ==
[2024-06-03] VITALS (10 sets, daily range): BP systolic 100–124; BP diastolic 54–76; PULSE 55–69; RESP 16–22; TEMP 36.6; O2SAT 96–100
[2024-06-03] MEDS: MIDAZOLAM 2 MG/2 ML VIAL IV (14:53)
[2024-06-03] MEDS: BUPIVACAINE 0.5% (PF) 10 ML VIAL 5 ML INJ (14:56)
[2024-06-03] MEDS: LIDOCAINE 1% 20 ML 5 ML INJ (14:57)
[2024-06-03] MEDS: iopamidoL 15 ML VIAL 3 ML INJ (14:57)
[2024-06-03] MEDS: MIDAZOLAM 2 MG/2 ML VIAL 1 MG IV (15:00)
--- NOTE | 2024-06-03 15:16 | P.PCN_ITS ---
Date/Time/Diagnoses Date of procedure: 06/03/24 Time of procedure: 15:16 Pre-procedure diagnosis: 1. FACET ARTHROPATHY Post-procedure diagnosis: same Procedure Notes Procedure: 1. BILATERAL- L4, L5 and S1 DIAGNOSTIC MB BLOCKS with LA Anesthetic Indications: Jimmy is referred by Dr. Silverio for treatment of Bilateral Axial LBP. Physician: Adrian Kelley Total Fluoroscopy time (seconds): 12 Total sedation minutes: 17 Complications: none Procedure in detail & Post-procedure care: DESCRIPTION OF PROCEDURE Fluoroscopically guided, contrast-controlled bilateral L4, L5 and S1 medial branch blocks with 0.5cc of 0.5% Marcaine. Following review of allergy and review of potential side effects and complications, including, but not necessarily limited to, infection, allergic reaction, local tissue breakdown, nerve injury, paralysis, stroke and possible , the patient indicated that the patient understood and agreed to proceed. An informed consent document was signed by the patient, witnessed by a nurse, and placed in the patient's chart. After review of previous anaesthesic history and IV conscious sedation the patient was deemed safe to proceed with today's procedure with IV conscious sedation as ASA class II designation. Safety time-out was performed to confirm patient ID, procedure to be performed and site of procedure. IV sedation was accomplished with a combination of 3mg of Versed was administered by the RN after DO order, titrated to patient comfort during the course of the procedure while the patient remained responsive to all verbal commands In the prone position, following sterile prep and drape of the lumbar region, the right L4, L5 and S1 anatomical location of the medial branch of the dorsal ramus was identified fluoroscopically. Subsequently an anesthetic skin wheal using 1% lidocaine solution was initiated at each of the anatomical spots. Subsequently then a 22-gauge 3.5-inch spinal needle was atraumatically introduced and advanced under fluoroscopic guidance at each of the corresponding sites at the right L4, L5 and S1 MB. After negative aspiration, 0.2cc of Isovue 200 was injected, confirming placement without vascular or intrathecal uptake. Subsequently then 0.5cc of 0.5% Marcaine solution was injected at each of the corresponding sites at the right L4, L5 and S1 medial branch locations. The identical procedure was replicated on the left. The patient tolerated the procedure well without signs or symptoms of complications prior to transfer to the recovery area continued monitoring without incident. Post-procedure, the patient was monitored initiating provocative activities to measure the amount of relief from block of the facetogenic pain. The patient reported a VAS of 7 prior to the procedure and a post-procedure VAS of 1. It has been a pleasure to assist in the diagnostic and therapeutic care of your patient. POST OP INSTRUCTIONS The patient was provided with a Pain Log to complete over the next several hours and subsequent days prior to the patient's follow up with the ordering physician. If the patient has childcare worker relief to the solution applied, then they may be a candidate for medial branch rhizotomy. The patient is aware, was provided, once again, with a Pain Log and will follow up with the referring physician for review and clinical correlation
== END 2024-06-03 15:34 | disposition home or self-care (01) ==
PROVIDERS: Family Provider Family Medicine; PCP Family Medicine; Referring Provider Physical Medicine & Rehabilitation; Visit Provider Physical Medicine & Rehabilitation
DX: M47.816 Spondylosis without myelopathy or radiculopathy, lumbar region (principal); M47.817 Spondylosis without myelopathy or radiculopathy, lumbosacral region
CPT/HCPCS: 64491; 64493; 64494; 64495; 99152; J2250

== ENCOUNTER 2024-08-05 13:21 | Outpatient (CLI) | payer OTHER, SELFPAY ==
[2024-08-05] VITALS (9 sets, daily range): BP systolic 111–119; BP diastolic 53–89; PULSE 53–72; RESP 15–16; TEMP 36.3; O2SAT 97–100
[2024-08-05] MEDS: MIDAZOLAM 2 MG/2 ML VIAL IV ×2 (15:04→15:07)
[2024-08-05] MEDS: iopamidoL 15 ML VIAL 3 ML INJ (15:15)
[2024-08-05] MEDS: LIDOCAINE 1% 20 ML 5 ML INJ (15:15)
[2024-08-05] MEDS: LIDOCAINE 2% INJ MDV 20ML 5 ML INJ (15:17)
--- NOTE | 2024-08-05 15:28 | P.PCN_ITS ---
Date/Time/Diagnoses Date of procedure: 08/05/24 Time of procedure: 15:28 Pre-procedure diagnosis: 1. FACET ARTHROPATHY Post-procedure diagnosis: same Procedure Notes Procedure: 1. BILATERAL- L4, L5 and S1 DIAGNOSTIC MB BLOCKS with SA Anesthetic Indications: Jimmy is referred by Dr. Silverio for treatment of Bilateral Axial LBP. Physician: Adrian Kelley Total Fluoroscopy time (seconds): 12 Total sedation minutes: 12 Complications: none Procedure in detail & Post-procedure care: DESCRIPTION OF PROCEDURE Fluoroscopically guided, contrast-controlled bilateral L4, L5 and S1 medial branch blocks with 0.5cc of 2% Lidocaine. Following review of allergy and review of potential side effects and complications, including, but not necessarily limited to, infection, allergic reaction, local tissue breakdown, nerve injury, paralysis, stroke and possible , the patient indicated that the patient understood and agreed to proceed. An informed consent document was signed by the patient, witnessed by a nurse, and placed in the patient's chart. After review of previous anaesthesic history and IV conscious sedation the patient was deemed safe to proceed with today's procedure with IV conscious sedation as ASA class II designation. Safety time-out was performed to confirm patient ID, procedure to be performed and site of procedure. IV sedation was accomplished with a combination of 4mg of Versed was administered by the RN after DO order, titrated to patient comfort during the course of the procedure while the patient remained responsive to all verbal commands In the prone position, following sterile prep and drape of the lumbar region, the right L4, L5 and S1 anatomical location of the medial branch of the dorsal ramus was identified fluoroscopically. Subsequently an anesthetic skin wheal using 1% lidocaine solution was initiated at each of the anatomical spots. Subsequently then a 22-gauge 3.5-inch spinal needle was atraumatically introduced and advanced under fluoroscopic guidance at each of the corresponding sites at the right L4, L5 and S1 MB. After negative aspiration, 0.2cc of Isovue 200 was injected, confirming placement without vascular or intrathecal uptake. Subsequently then 0.5cc of 2% Lidocaine solution was injected at each of the corresponding sites at the right L4, L5 and S1 medial branch locations. The identical procedure was replicated on the left. The patient tolerated the procedure well without signs or symptoms of complications prior to transfer to the recovery area continued monitoring without incident. Post-procedure, the patient was monitored initiating provocative activities to measure the amount of relief from block of the facetogenic pain. The patient reported a VAS of 7 prior to the procedure and a post-procedure VAS of 1. It has been a pleasure to assist in the diagnostic and therapeutic care of your patient. POST OP INSTRUCTIONS The patient was provided with a Pain Log to complete over the next several hours and subsequent days prior to the patient's follow up with the ordering physician. If the patient has labor relations analyst relief to the solution applied, then they may be a candidate for medial branch rhizotomy. The patient is aware, was provided, once again, with a Pain Log and will follow up with the referring physician for review and clinical correlation
== END 2024-08-05 15:45 | disposition home or self-care (01) ==
LOC: RAD 13:22
PROVIDERS: Family Provider Family Medicine; PCP Family Medicine; Referring Provider Physical Medicine & Rehabilitation; Visit Provider Physical Medicine & Rehabilitation
DX: M47.816 Spondylosis without myelopathy or radiculopathy, lumbar region (principal)
CPT/HCPCS: 64493; 64494; 99152; J2250

== ENCOUNTER 2024-08-28 10:33 | Outpatient (CLI) | payer OTHER, SELFPAY ==
[2024-08-28] VITALS (13 sets, daily range): BP systolic 96–130; BP diastolic 51–72; PULSE 56–65; RESP 14–18; TEMP 36.6; O2SAT 97–100
[2024-08-28] MEDS: MIDAZOLAM 2 MG/2 ML VIAL IV ×2 (11:56→12:07)
[2024-08-28] MEDS: MIDAZOLAM 2 MG/2 ML VIAL 1 MG IV ×2 (11:57→12:19)
[2024-08-28] MEDS: BUPIVACAINE 0.5% (PF) 10 ML VIAL 5 ML INJ (12:03)
[2024-08-28] MEDS: LIDOCAINE 1% 20 ML 5 ML INJ (12:04)
--- NOTE | 2024-08-28 12:51 | P.PCN_ITS ---
Date/Time/Diagnoses Date of procedure: 08/28/24 Time of procedure: 12:51 Pre-procedure diagnosis: 1. RECALCITRANT FACET ARTHROPATHY Post-procedure diagnosis: same Procedure Notes Procedure: 1. BILATERAL L4 AND L5 MEDIAL BRANCH RADIOFREQUENCY NEUROTOMY AND S1 DORSAL RAMUS BRANCH RADIOFREQUENCY NEUROTOMY Indications: Jimmy is referred by Dr. Silverio for treatment of facet arthropathy. Physician: Adrian Kelley Total Fluoroscopy time (seconds): 17 Total sedation minutes: 44 Complications: none Procedure in detail & Post-procedure care: DESCRIPTION OF PROCEDURE Bilateral L4 and L5 medial branch radiofrequency neurotomy and bilateral S1 dorsal ramus radiofrequency neurotomy under fluoroscopy with conscious sedation. The patient is well known to this clinic having undergone previous facet injections with good but temporary relief. The patient has experienced appropriate, concordant relief with previous facet and median branch blocks but the patient's pain has been recalcitrant to further conservative measures. Therefore, based upon the patient's relief and persistent symptoms, the patient is considered an appropriate candidate for facet rhizotomy. All of the patient's questions regarding the risks versus benefits of the procedure, including, but not limited to, bleeding, infection, temporary as well as lasting nerve injury, paralysis, stroke, and , as well treatment alternatives were answered to satisfaction. After obtaining informed consent, denial of pertinent drug allergies, as well as being made aware of the potential risks of bleeding, infection, spinal cord trauma, paralysis, temporary and permanent nerve damage, seizure, stroke, and possible , the patient was brought to the fluoroscopy suite and positioned prone on the fluoroscopy table. The lumbar region was prepped in usual sterile fashion and covered with a fenestrated drape in the usual sterile fashion. Appropriate monitors applied including pulse oximeter, pulse, and blood pressure for regular monitoring throughout the procedure. After review of previous anaesthesic history and IV conscious sedation the patient was deemed safe to proceed with today's procedure with IV conscious sedation as ASA class II designation. Safety time-out was performed to confirm patient ID, procedure to be performed and site of procedure. IV sedation was accomplished with a combination of 6mg of Versed administered by the RN after DO order, titrated to patient comfort during the course of the procedure while the patient remained responsive to all verbal commands. After local infiltration using 1% lidocaine, under fluoroscopic guidance, a 10- cm RF insulated needle with a 10-mm active tip was positioned parallel to the junction of the right sacral ala and the superior articulating process where the S1 dorsal ramus resides. Needle placement was confirmed with motor stimulation of .5v on the right which produced local stimulation without radicular component. The stimulation was then increased to 2v with, once again, only local multifidus stimulation without radicular component. The needle was then removed and the identical procedure was performed along the length of the right L5 medial branch with motor stimulation at .7v on the right. The identical procedure was once again performed along the length of the right L4 medial branch with motor stimulation of .5v on the right. The medial branches were then anesthetised with 0.5% Marcaine. This was then followed by two discreet lesions performed at 80 degrees Celsius for 90 seconds each. The identical procedure was repeated on the left. The patient tolerated the procedure well without signs or symptoms of complications prior to transfer to the recovery area continued monitoring without incident. The patient was then transferred to the recovery area where they were observed for an appropriate period of time after the injection. The patient reported a VAS score of 8 prior to the procedure and a post-procedure VAS of 1. POST OP INSTRUCTIONS The patient was provided a Pain Log to continue to record the patient's response to the target-specific procedure prior to the patient's follow-up visit with the referring physician. Additionally, specific post-injection care instructions and a contact number to our office were provided if concerns arise regarding possible complications associated with the procedure are suspected.
== END 2024-08-28 12:55 | disposition home or self-care (01) ==
PROVIDERS: Family Provider Family Medicine; PCP Family Medicine; Referring Provider Physical Medicine & Rehabilitation; Visit Provider Physical Medicine & Rehabilitation
DX: M47.816 Spondylosis without myelopathy or radiculopathy, lumbar region (principal); M47.817 Spondylosis without myelopathy or radiculopathy, lumbosacral region
CPT/HCPCS: 64635; 64636; 99152; 99153; J2250